=== PATIENT | female | born 1950 | race Caucasian/White ===

== ENCOUNTER 2016-07-26 05:55 | Inpatient (IN) | payer MEDICARE ==
[2016-07-19 18:01] LABS: HEMATOCRIT 36.2 % (36.0-48.0); HEMOGLOBIN 11.8 g/dL (12.0-16.0)
[2016-07-19 18:25] LABS: CALCIUM, SERUM 9.7 MG/DL (8.5-10.4); CHLORIDE, SERUM 105 MMOL/L (96-112); CO2 (CARBON DIOXIDE) 28 MMOL/L (24-34); CREATININE 0.61 MG/DL (0.55-1.02); GFR AFRICAN AMERICAN 109 ML/MIN (>=60); GFR NON AFRICAN AMERICAN 94 ML/MIN (>=60); POTASSIUM, SERUM 4.1 MMOL/L (3.5-5.3); SODIUM, SERUM 143 MMOL/L (135-148)
[2016-07-19 18:27] LABS: BUN (BLOOD UREA NITROGEN) 22 MG/DL (6-23); GLUCOSE, SERUM 75 MG/DL (60-99)
--- NOTE | ~2016-07-26 | OP ---
Record Of Operation [facility] [address] [place]. [address] NAME: FRANCISCO SHARP : 46 STATUS : ADM IN PAT#: [id number] AGE: 65 ADM/REG DATE : 07/26/16 MR#: [id number] REPORT SERV DATE: 07/26/16 DICTATED BY: JASEN CHILD DATE: 07/26/16 REPORT STATUS : Draft TRANSCRIBED BY: MODL DATE: 07/26/16 DATE OF PROCEDURE: 07/26/2016 PREOPERATIVE DIAGNOSES: 1. Type 3 paraesophageal hernia with intermittent organoaxial obstruction. 2. Depression. POSTOPERATIVE DIAGNOSES: 1. Type 3 paraesophageal hernia with intermittent organoaxial obstruction. 2. Depression. PROCEDURE: 1. Robotic incarcerated type 3 paraesophageal hernia repair with Claudia fundoplication. 2. Repair of esophageal perforation with phrenoesophageal membrane patch and incorporation into the fundoplication. ANESTHESIA: General. SURGEON: Jasen Child M.D. MUSHROOM FARMER: Oscar. COMPLICATIONS: Esophageal perforation secondary to bougie dilator approximately 3 cm proximal to the GE junction on the anterior wall, it was a 30 mm bougie. OPERATIVE TECHNIQUE: The patient was brought to the operating room, placed on the table in supine position. She had preoperative IV antibiotics. She had sequential hose in place. She voided prior to procedure. She underwent general endotracheal anesthesia, and was prepped and draped in sterile fashion and time-out was completed. At this point, the patient then had local anesthesia instilled to the periumbilical skin. A 15 blade knife was used to make incision through the base of the umbilicus. The skin and fascia were elevated and the Veress needle was inserted and water drop test was safely performed. A 15 mm of pneumoperitoneum was obtained. An 8 mm robotic trocar was then inserted followed by robotic camera. There was no evidence of Veress or trocar injury. The patient then had a left and right midclavicular 8 mm robotic trocars placed just cephalad to the umbilical trocar and a far left lateral robotic trocar placed under direct visualization as well. An additional 8 mm greenhouse assistant port was placed in the right mid abdomen between the two robotic trocars. At this point, the patient was placed in steep Trendelenburg. The camera was then inserted and the patient cart was brought to the bed side and the cannulas were docked. The camera was then placed on the large hiatal hernia and prior to that, the rest of the trocars were then docked to the trocars. The instruments were then inserted under direct visualization. The procedure began as the stomach was identified and gently retracted out of the shaft. A large amount of approximately 3/4 of length of the stomach was reduced out of the chest. The dissection began at the fundus. The gastrosplenic vessels were then taken down using the vessel sealer from mobilizing the entire fundus to the level of the left sharyn. The dissection then began over the phrenoesophageal membrane with the vessel sealer anteriorly Record Of Operation [facility] [address] [facility] [place]. [address] NAME: FRANCISCO SHARP : 46 STATUS : ADM IN [facility]#: [id number] AGE: 65 ADM/REG DATE : 07/26/16 MR#: [id number] REPORT SERV DATE: 07/26/16 DICTATED BY: JASEN CHILD DATE: 07/26/16 REPORT STATUS : Draft TRANSCRIBED BY: LEILA DATE: 07/26/16 and then to the right side of the cord muscles. At this point, careful dissection continued and the posterior stomach was mobilized and the entire stomach and hernia sac was divided and reduced. At this point, there was approximately 2 to 3 cm esophageal length noted in the abdomen. A window was created posteriorly using blunt dissection and the right and left crural muscles was seen clearly at their junction, where care was taken not to involve the vena cava and aorta that were visualized. The patient was then deemed ready for the fundoplication. An attempt with a 40 bougie was not felt comfortable, and the decision was made to proceed with a 30 bougie. During the advancement of the bougie, approximately 3 to 4 cm above the GE junction an anterior perforation was noted. The bougie was removed and at this point, the perforation was visible. The esophagus was then completely mobilized using the vessel sealer and blunt dissection until the esophagus was able to be reduced into the stomach for approximately 5 to 6 cm. This allowed the perforation to be sewn with a running 0 Vicryl suture without tension after an NG tube was placed under direct visualization to pass the defect and advanced into the distal stomach. After the primary closure was completed, additional layer was placed over the closure to include healthy portion of fat from the phrenoesophageal membrane. This was buttressed over the defect and secured with interrupted seromuscular sutures to the esophagus with 3-0 Vicryl suture. There was no tension on the closure and there was no leak and it appeared viable with the flap. At this point, the hiatal hernia was closed with interrupted [id number] 2-0 Ethibond sutures that were hand-sewn until the defect and the hiatal hernia was approximately 2 cm. At this point, the stomach was passed easily under the esophagus at the level of fundus and placed on the patient's right side without tension that stayed in place. The fundoplication was then completed loosely being placed over the previous esophageal closure. This added a second layer to the esophageal closure. The fundoplication was performed without tension completely and with 2-0 Ethibond sutures for approximately 2.5 cm in length. The sutures did incorporate the right anterior lateral wall of the esophagus and ensured it overlapping the previous esophageal closure. There was no tension on the wrap, which was clearly visualized and within the abdomen. There was no evidence of any other visual abnormalities. The instruments and trocars were then undocked. The suction was placed in the hiatus and full breath was obtained as the pneumoperitoneum was aspirated. All the trocars were then removed and the anterior fascia in the midline was reapproximated using a 0 Vicryl suture. The skin edges were then reapproximated using interrupted subcuticular Monocryl sutures. Dermabond was applied. She was extubated and taken to recovery room in stable condition for chest x-ray and postoperative monitoring. ASTER/LEILA Jasen Child M.D. / [id number] CC: Ken Parker M.D.
--- NOTE | ~2016-07-26 | DS ---
Discharge Summary [facility] [address] [place]. [address] NAME: FRANCISCO SHARP : 46 STATUS : DIS IN PAT#: [id number] AGE: 65 ADM/REG DATE : 07/26/16 MR#: [id number] REPORT SERV DATE: 08/11/16 DICTATED BY: JASEN CHILD DATE: 08/10/16 REPORT STATUS : Draft TRANSCRIBED BY: LEILA DATE: 08/10/16 Data Collection from hospitalization DISCHARGE DIAGNOSES: 1. Type 3 paraesophageal hernia with intermittent organoaxial obstruction. 2. Depression. 3. Former smoker. 4. Anemia. CONSULTATIONS: None. PROCEDURES PERFORMED: 1. Robotic incarcerated type 3 paraesophageal hernia repair with Claudia fundoplication, repair of esophageal perforation with phrenoesophageal membrane patch and incorporation into the fundoplication on 07/26/2016. 2. CT scan of the chest without contrast on 08/01/2016. 3. Water-soluble contrast swallow study on 08/01/2016. MEDICATIONS: Resume preop medications. CONDITION AT DISCHARGE: Stable. DISPOSITION: The patient was discharged home with diet and activities as instructed. She would call my office for a followup appointment. HOSPITAL COURSE: This is a 65-year-old female who has a type 3 paraesophageal hernia with intermittent organoaxial obstruction. She has a history of depression and anemia. She is a former smoker. Treatment options were discussed and it was elected to proceed with surgical intervention. She was admitted to the hospital for further evaluation and treatment. Upon admission, she was taken to the operating room where she underwent the above-mentioned procedure. She tolerated this well, and there were no complications. On postop day #1, she had no complaints except for some incisional pain. She had no chest pain or shortness of breath. NG tube was in place. She remained on bowel rest. A PICC line was inserted and TPN therapy was provided. On 07/28/2016, she had a poor inspiratory effort. She had no abdominal pain. She had no dysphagia. Her abdomen was soft and nontender. NG tube remained in place. TPN therapy continued. On 07/29/2016, she had a slight increase in incentive spirometry effort. Albuterol was being provided. She had no complaints of chest pain or abdominal pain. The NG tube was flushed. Aerosol treatments continued. On 08/01/2016, a CT scan of the chest without contrast was performed. She also had a water-soluble contrast swallow study. There was no evidence of esophageal leak or obstruction. There was interval reduction of prior large hiatal hernia. Discharge planning was performed. She was started on clear liquids. On 08/02/2016, she had no new complaints. She was tolerating some oral intake. She had no dyspepsia or dysphagia. Discharge instructions were given. Due to her improved and stable condition, she was discharged home with the above-stated instructions. Discharge Summary [facility] [address] [place]. [address] NAME: FRANCISCO SHARP : 46 STATUS : DIS IN PAT#: [id number] AGE: 65 ADM/REG DATE : 07/26/16 MR#: [id number] REPORT SERV DATE: 08/11/16 DICTATED BY: JASEN CHILD DATE: 08/10/16 REPORT STATUS : Draft TRANSCRIBED BY: LEILA DATE: 08/10/16 Information collected by: Anne Portillo I submit the above information as my discharge summary. TG/LEILA Jasen Child M.D. / [id number] CC: Ken Parker M.D.
[~2016-07-26 05:55] MED LIST: AMB5 PO; TRAZ100 PO; WELLSR150 PO
[2016-07-27 05:48] LABS: BASOPHILS 0.1 %; BASOPHILS ABSOLUTE 0.01 10/3/uL (0.0-0.16); EOSINOPHILS 0 %; HEMATOCRIT 38.6 % (36.0-48.0); HEMOGLOBIN 12.7 g/dL (12.0-16.0); IMMATURE GRANULOCYTES 0.1 %; IMMATURE GRANULOCYTES ABSOLUTE 0.01 10/3/uL (0.0-0.11); LYMPHOCYTES 7.7 %; LYMPHOCYTES ABSOLUTE 0.81 10/3/uL (0.67-4.30); MANUAL DIFF NO %; MEAN CORPUS HGB CONC 32.9 g/dL (32.0-36.0); MEAN CORPUSCULAR HEMOGLOB 30.2 pg (26.0-34.0); MEAN CORPUSCULAR VOLUME 91.7 fL (80-100); MEAN PLATELET VOLUME 10.7 fL (9.2-13.0); MONOCYTES 8.7 %; MONOCYTES ABSOLUTE 0.91 10/3/uL (0.21-1.20); NEUTROPHILS 83.4 %; NEUTROPHILS ABSOLUTE 8.77 10/3/uL (2.02-8.40); PLATELET COUNT 286 10/3/uL (150-400); RBC DISTRIBUTION WIDTH 13.1 % (12.0-16.0); RED CELL COUNT 4.21 10/6/uL (4.0-5.6); WHITE BLOOD CELLS 10.5 10/3/uL (4.5-10.5)
[2016-07-27 06:01] LABS: CHLORIDE, SERUM 105 MMOL/L (96-112); CO2 (CARBON DIOXIDE) 27 MMOL/L (24-34); CREATININE 0.89 MG/DL (0.55-1.02); GFR AFRICAN AMERICAN 78 ML/MIN (>=60); GFR NON AFRICAN AMERICAN 67 ML/MIN (>=60); POTASSIUM, SERUM 4.2 MMOL/L (3.5-5.3); SODIUM, SERUM 139 MMOL/L (135-148)
[2016-07-27 06:02] LABS: BUN (BLOOD UREA NITROGEN) 17 MG/DL (6-23); CALCIUM, SERUM 8.6 MG/DL (8.5-10.4); GLUCOSE, SERUM 123 MG/DL (60-99)
[2016-07-27 10:51] LABS: ASCORBIC ACID (UR NOT ORDER) NEG (NEG); BILIRUBIN, URINE NEGATIVE (NEG); KETONE, URINE NEGATIVE (NEG); LEUKOCYTE ESTERASE(NOT OR SMALL (NEG); WBC (NOT ORDERED) (RFLEX) 5 (0-5)
[2016-07-27 12:24] LABS: A/G RATIO 1.1 (0.7-1.9); ALBUMIN 3.5 G/DL (3.5-5.0); ALKALINE PHOSPHATASE 60 U/L (45-117); GLOBULIN 3.3 G/DL (2.5-4.1); PHOSPHORUS, SERUM 2.3 MG/DL (2.5-4.5); PREALBUMIN 23.1 MG/DL (17.0-43.0); SGOT(AST) 108 U/L (5-40); SGPT(ALT) 73 U/L (5-65); TOTAL PROTEIN 6.8 G/DL (6.0-8.5); TRIGLYCERIDE 53 MG/DL (< 150)
[2016-07-28 05:29] LABS: BASOPHILS 0.2 %; BASOPHILS ABSOLUTE 0.02 10/3/uL (0.0-0.16); EOSINOPHILS 0 %; HEMATOCRIT 37.2 % (36.0-48.0); HEMOGLOBIN 12.4 g/dL (12.0-16.0); IMMATURE GRANULOCYTES 0.2 %; IMMATURE GRANULOCYTES ABSOLUTE 0.02 10/3/uL (0.0-0.11); LYMPHOCYTES 7.5 %; LYMPHOCYTES ABSOLUTE 0.94 10/3/uL (0.67-4.30); MEAN CORPUS HGB CONC 33.3 g/dL (32.0-36.0); MEAN CORPUSCULAR HEMOGLOB 30.3 pg (26.0-34.0); MEAN PLATELET VOLUME 10.7 fL (9.2-13.0); MONOCYTES 7.4 %; MONOCYTES ABSOLUTE 0.92 10/3/uL (0.21-1.20); NEUTROPHILS 84.7 %; NEUTROPHILS ABSOLUTE 10.58 10/3/uL (2.02-8.40); PLATELET COUNT 272 10/3/uL (150-400); RBC DISTRIBUTION WIDTH 13.3 % (12.0-16.0); RED CELL COUNT 4.09 10/6/uL (4.0-5.6); WHITE BLOOD CELLS 12.5 10/3/uL (4.5-10.5)
[2016-07-28 05:31] LABS: MANUAL DIFF NO %
[2016-07-28 05:50] LABS: CALCIUM, SERUM 9.2 MG/DL (8.5-10.4); CHLORIDE, SERUM 104 MMOL/L (96-112); CO2 (CARBON DIOXIDE) 25 MMOL/L (24-34); CREATININE 0.66 MG/DL (0.55-1.02); GFR AFRICAN AMERICAN 106 ML/MIN (>=60); GFR NON AFRICAN AMERICAN 91 ML/MIN (>=60); GLUCOSE, SERUM 112 MG/DL (60-99); PHOSPHORUS, SERUM 1.7 MG/DL (2.5-4.5); POTASSIUM, SERUM 4.2 MMOL/L (3.5-5.3); SODIUM, SERUM 139 MMOL/L (135-148)
[2016-07-28 05:51] LABS: BUN (BLOOD UREA NITROGEN) 13 MG/DL (6-23)
[2016-07-29 05:58] LABS: BASOPHILS 0.2 %; BASOPHILS ABSOLUTE 0.02 10/3/uL (0.0-0.16); EOSINOPHILS 0.2 %; EOSINOPHILS ABSOLUTE 0.02 10/3/uL (0.0-0.53); HEMOGLOBIN 13.2 g/dL (12.0-16.0); IMMATURE GRANULOCYTES 0.2 %; IMMATURE GRANULOCYTES ABSOLUTE 0.02 10/3/uL (0.0-0.11); LYMPHOCYTES 6.7 %; LYMPHOCYTES ABSOLUTE 0.75 10/3/uL (0.67-4.30); MEAN CORPUS HGB CONC 33.8 g/dL (32.0-36.0); MEAN CORPUSCULAR HEMOGLOB 31.2 pg (26.0-34.0); MEAN CORPUSCULAR VOLUME 92.2 fL (80-100); MEAN PLATELET VOLUME 11.2 fL (9.2-13.0); MONOCYTES ABSOLUTE 1.12 10/3/uL (0.21-1.20); NEUTROPHILS 82.7 %; NEUTROPHILS ABSOLUTE 9.22 10/3/uL (2.02-8.40); PLATELET COUNT 206 10/3/uL (150-400); RBC DISTRIBUTION WIDTH 13.5 % (12.0-16.0); RED CELL COUNT 4.23 10/6/uL (4.0-5.6); WHITE BLOOD CELLS 11.2 10/3/uL (4.5-10.5)
[2016-07-29 06:02] LABS: MANUAL DIFF NO %
[2016-07-29 06:16] LABS: CALCIUM, SERUM 9.1 MG/DL (8.5-10.4); CHLORIDE, SERUM 108 MMOL/L (96-112); CO2 (CARBON DIOXIDE) 23 MMOL/L (24-34); CREATININE 0.52 MG/DL (0.55-1.02); GFR AFRICAN AMERICAN 115 ML/MIN (>=60); GFR NON AFRICAN AMERICAN 99 ML/MIN (>=60); GLUCOSE, SERUM 123 MG/DL (60-99); POTASSIUM, SERUM 3.9 MMOL/L (3.5-5.3); SODIUM, SERUM 141 MMOL/L (135-148)
[2016-07-29 06:18] LABS: BUN (BLOOD UREA NITROGEN) 24 MG/DL (6-23); PHOSPHORUS, SERUM 2.5 MG/DL (2.5-4.5)
[2016-07-30 06:59] LABS: BASOPHILS 0.3 %; BASOPHILS ABSOLUTE 0.03 10/3/uL (0.0-0.16); EOSINOPHILS 2.7 %; HEMATOCRIT 36.5 % (36.0-48.0); IMMATURE GRANULOCYTES 0.3 %; IMMATURE GRANULOCYTES ABSOLUTE 0.03 10/3/uL (0.0-0.11); LYMPHOCYTES 12.3 %; LYMPHOCYTES ABSOLUTE 1.34 10/3/uL (0.67-4.30); MEAN CORPUS HGB CONC 32.9 g/dL (32.0-36.0); MEAN CORPUSCULAR HEMOGLOB 30.2 pg (26.0-34.0); MEAN CORPUSCULAR VOLUME 91.9 fL (80-100); MEAN PLATELET VOLUME 10.9 fL (9.2-13.0); MONOCYTES 12.5 %; MONOCYTES ABSOLUTE 1.36 10/3/uL (0.21-1.20); NEUTROPHILS 71.9 %; NEUTROPHILS ABSOLUTE 7.85 10/3/uL (2.02-8.40); PLATELET COUNT 252 10/3/uL (150-400); RBC DISTRIBUTION WIDTH 13.3 % (12.0-16.0); RED CELL COUNT 3.97 10/6/uL (4.0-5.6); WHITE BLOOD CELLS 10.9 10/3/uL (4.5-10.5)
[2016-07-30 07:05] LABS: BUN (BLOOD UREA NITROGEN) 27 MG/DL (6-23); CALCIUM, SERUM 9.1 MG/DL (8.5-10.4); CHLORIDE, SERUM 106 MMOL/L (96-112); CO2 (CARBON DIOXIDE) 23 MMOL/L (24-34); GFR AFRICAN AMERICAN 116 ML/MIN (>=60); GFR NON AFRICAN AMERICAN 100 ML/MIN (>=60); GLUCOSE, SERUM 108 MG/DL (60-99); POTASSIUM, SERUM 4.3 MMOL/L (3.5-5.3); SODIUM, SERUM 139 MMOL/L (135-148)
[2016-07-30 07:12] LABS: PHOSPHORUS, SERUM 3.3 MG/DL (2.5-4.5)
[2016-07-30 07:13] LABS: MANUAL DIFF NO %
[2016-07-31 06:59] LABS: BASOPHILS 0.1 %; BASOPHILS ABSOLUTE 0.01 10/3/uL (0.0-0.16); EOSINOPHILS 4.8 %; EOSINOPHILS ABSOLUTE 0.48 10/3/uL (0.0-0.53); HEMATOCRIT 34.2 % (36.0-48.0); HEMOGLOBIN 11.6 g/dL (12.0-16.0); IMMATURE GRANULOCYTES 0.4 %; IMMATURE GRANULOCYTES ABSOLUTE 0.04 10/3/uL (0.0-0.11); LYMPHOCYTES ABSOLUTE 0.89 10/3/uL (0.67-4.30); MEAN CORPUS HGB CONC 33.9 g/dL (32.0-36.0); MEAN CORPUSCULAR HEMOGLOB 30.1 pg (26.0-34.0); MEAN PLATELET VOLUME 10.7 fL (9.2-13.0); MONOCYTES 11.1 %; NEUTROPHILS 74.6 %; PLATELET COUNT 275 10/3/uL (150-400); RBC DISTRIBUTION WIDTH 13.5 % (12.0-16.0); RED CELL COUNT 3.85 10/6/uL (4.0-5.6); WHITE BLOOD CELLS 9.9 10/3/uL (4.5-10.5)
[2016-07-31 07:06] LABS: MANUAL DIFF NO %; MEAN CORPUSCULAR VOLUME 88.8 fL (80-100)
[2016-07-31 07:08] LABS: BUN (BLOOD UREA NITROGEN) 25 MG/DL (6-23); CALCIUM, SERUM 8.9 MG/DL (8.5-10.4); CHLORIDE, SERUM 105 MMOL/L (96-112); CO2 (CARBON DIOXIDE) 27 MMOL/L (24-34); CREATININE 0.54 MG/DL (0.55-1.02); GFR AFRICAN AMERICAN 113 ML/MIN (>=60); GFR NON AFRICAN AMERICAN 98 ML/MIN (>=60); GLUCOSE, SERUM 114 MG/DL (60-99); PHOSPHORUS, SERUM 3.2 MG/DL (2.5-4.5); POTASSIUM, SERUM 4.6 MMOL/L (3.5-5.3); SODIUM, SERUM 140 MMOL/L (135-148)
[2016-08-01 06:08] LABS: BASOPHILS 0.3 %; BASOPHILS ABSOLUTE 0.03 10/3/uL (0.0-0.16); EOSINOPHILS 4.2 %; EOSINOPHILS ABSOLUTE 0.41 10/3/uL (0.0-0.53); HEMATOCRIT 32.4 % (36.0-48.0); IMMATURE GRANULOCYTES 0.7 %; IMMATURE GRANULOCYTES ABSOLUTE 0.07 10/3/uL (0.0-0.11); LYMPHOCYTES 9.9 %; LYMPHOCYTES ABSOLUTE 0.96 10/3/uL (0.67-4.30); MEAN CORPUSCULAR HEMOGLOB 30.5 pg (26.0-34.0); MEAN CORPUSCULAR VOLUME 89.8 fL (80-100); MEAN PLATELET VOLUME 11.1 fL (9.2-13.0); MONOCYTES 9.8 %; MONOCYTES ABSOLUTE 0.95 10/3/uL (0.21-1.20); NEUTROPHILS 75.1 %; NEUTROPHILS ABSOLUTE 7.28 10/3/uL (2.02-8.40); PLATELET COUNT 287 10/3/uL (150-400); RBC DISTRIBUTION WIDTH 13.1 % (12.0-16.0); RED CELL COUNT 3.61 10/6/uL (4.0-5.6); WHITE BLOOD CELLS 9.7 10/3/uL (4.5-10.5)
[2016-08-01 06:09] LABS: MANUAL DIFF NO %
[2016-08-01 06:20] LABS: BUN (BLOOD UREA NITROGEN) 24 MG/DL (6-23); CALCIUM, SERUM 8.8 MG/DL (8.5-10.4); CHLORIDE, SERUM 106 MMOL/L (96-112); CO2 (CARBON DIOXIDE) 24 MMOL/L (24-34); CREATININE 0.45 MG/DL (0.55-1.02); GFR AFRICAN AMERICAN 120 ML/MIN (>=60); GFR NON AFRICAN AMERICAN 104 ML/MIN (>=60); GLUCOSE, SERUM 129 MG/DL (60-99); PHOSPHORUS, SERUM 3.5 MG/DL (2.5-4.5); POTASSIUM, SERUM 4.4 MMOL/L (3.5-5.3); SODIUM, SERUM 138 MMOL/L (135-148)
[2016-08-02 06:37] LABS: BUN (BLOOD UREA NITROGEN) 21 MG/DL (6-23); CALCIUM, SERUM 8.8 MG/DL (8.5-10.4); CHLORIDE, SERUM 104 MMOL/L (96-112); CO2 (CARBON DIOXIDE) 24 MMOL/L (24-34); GFR AFRICAN AMERICAN 116 ML/MIN (>=60); GFR NON AFRICAN AMERICAN 100 ML/MIN (>=60); GLUCOSE, SERUM 135 MG/DL (60-99); POTASSIUM, SERUM 4.2 MMOL/L (3.5-5.3); SODIUM, SERUM 137 MMOL/L (135-148)
[2016-08-02 06:39] LABS: TRIGLYCERIDE 125 MG/DL (< 150)
[2016-08-02] MEDS ORDERED: NORCO1 TA2 PO (08:35)
== END 2016-08-02 10:13 | disposition home or self-care (01) | DRG 327 ==
LOC: SDC 05:55 → SDC/OF 14:23 → 5SO 17:58 → SDC/OF 07-28 14:20 → 5SO 07-28 14:32
PROVIDERS: Surgery
DX: K44.9 Diaphragmatic hernia without obstruction or gangrene (principal); E44.0 Moderate protein-calorie malnutrition; J98.11 Atelectasis; F32.9 Major depressive disorder, single episode, unspecified; Z68.25 Body mass index [BMI] 25.0-25.9, adult; Z28.21 Immunization not carried out because of patient refusal
CPT/HCPCS: 36569; 71010; 71020; 71250; 74220; 80048; 80053; 81001; 82330; 82962; 83735; 84100; 84134; 84478; 85014; 85018; 85025; 87086; 93005; 94640; A9270-GY; C1751; J0330; J0690; J1170; J2250; J2270; J2405; J2710; J3010